=== PATIENT | male | born 2000 | race Caucasian/White ===

== ENCOUNTER 2023-12-19 12:22 | Emergency (ER) | payer OTHER ==
[~2023-12-19] VITALS: Ht 177.8 cm; Wt 77.3 kg
[2023-12-19 13:03] VITALS: PULSE 53; RESP 18; O2SAT 98
[2023-12-19 14:14] VITALS: TEMP 97.8
== END 2023-12-19 14:27 | disposition home or self-care (01) ==
LOC: ER 12:23
DX: M54.50 Low back pain, unspecified (principal)
CPT/HCPCS: 72100; 99283